=== PATIENT | male | born 1960 ===

== ENCOUNTER 2023-02-25 08:18 | Inpatient (IN) | payer OTHER ==
[~2023-02-25] VITALS: Ht 160 cm; Wt 86.6 kg
[~2023-02-25 08:18] MED LIST: PROSCAR5 MG PO; SINGULAIR10 MG PO; TRAM1TAB98 PO
[2023-02-25] MEDS ORDERED: PERCOCET 5-3251 EACH PO (13:26)
[2023-02-25] MEDS ORDERED: MEDROLPACK PO (13:27)
[2023-02-25] MEDS ORDERED: GABAPENTIN100 M2 PO (13:27)
[2023-02-25] MEDS ORDERED: AMOX-CLAV 875-1 EACH PO (13:27)
[2023-02-25] MEDS ORDERED: NEURONTIN800 MG PO (13:28)
[2023-02-25] MEDS ORDERED: COLACE100 MG PO (13:29)
[2023-02-26 06:22] LABS: HEMOGLOBIN 13.7 g/dL (13-16.00); MEAN CELL VOLUME 80.6 fL (80.0-100.00); MEAN CORPUSCULAR HEMOGLOBIN 26.9 pg (27.00-32.0); MEAN CORPUSCULAR HGB CONC 33.4 g/dl (32.0-36.0); PLATELET COUNT 287 K/uL (150-450); RED BLOOD COUNT 5.09 M/uL (4.00-6.00); RED CELL DISTRIBUTION WIDTH 14.8 % (11.5-14.5)
[2023-02-26 06:58] LABS: CALCIUM 8.8 mg/dL (8.5-10.1); CREATININE SERUM 1.03 mg/dL (0.70-1.30); GFR 72.48; POTASSIUM 4.34 mEq/L (3.5-5.1)
== END 2023-02-27 17:38 | DRG 455 ==
LOC: CIR.AMB 08:18 → SURG 19:22
PROVIDERS: ADMIT Orthopaedic Surgery Orthopaedic Surgery of the Spine; ATTEND Orthopaedic Surgery Orthopaedic Surgery of the Spine
PROC: XRGC0R7 Fusion of 2 or more Lumbar Vertebral Joints using Custom-Made Anatomically Designed Interbody Fusion Device, Open Approach, New Technology Group 7 (ICD-10-PCS; 2023-02-25)
PROC: 0ST20ZZ Resection of Lumbar Vertebral Disc, Open Approach (ICD-10-PCS; 2023-02-25)
PROC: 07DR0ZZ Extraction of Iliac Bone Marrow, Open Approach (ICD-10-PCS; 2023-02-25)
PROC: 4A1104G Monitoring of Peripheral Nervous Electrical Activity, Intraoperative, Open Approach (ICD-10-PCS; 2023-02-25)
PROC: 0SG1071 Fusion of 2 or more Lumbar Vertebral Joints with Autologous Tissue Substitute, Posterior Approach, Posterior Column, Open Approach (ICD-10-PCS; principal; 2023-02-25 10:30)
PROC: 4A12X4Z Monitoring of Cardiac Electrical Activity, External Approach (ICD-10-PCS; 2023-02-26)
DX: M48.062 Spinal stenosis, lumbar region with neurogenic claudication (principal); M51.36 Other intervertebral disc degeneration, lumbar region; M96.1 Postlaminectomy syndrome, not elsewhere classified